=== PATIENT | male | born 1960 | race Caucasian/White ===

== ENCOUNTER 2019-02-06 06:05 | Day surgery (SDC) | payer BC ==
[2019-02-05 12:09] VITALS: BMI 35.7
[~2019-02-06 06:05] MED LIST: BUPIVACAINE HCL/PF (5 MG/ML) 30 ML VIAL IJ ONE; DEXAMETHASONE SOD PHOSPHATE 4 MG/1 ML VIAL IM ONE
[2019-02-06 06:58] VITALS: TEMP 97.9
[2019-02-06] MEDS ORDERED: PROPOFOL 20 ML ONE ×4 (07:09→08:14)
[2019-02-06] MEDS ORDERED: SUCCINYLCHOLINE CHLORIDE 200 MG/10 ML SYRINGE ONE (07:09)
[2019-02-06] MEDS ORDERED: MIDAZOLAM HCL 2 MG/2 ML SINGLE DOSE VIAL ONE (07:10)
[2019-02-06] MEDS ORDERED: ceFAZolin SODIUM 1 GM VIAL ONE (07:13)
[2019-02-06] MEDS ORDERED: SODIUM CHLORIDE 0.9% P/F 10 ML VIAL IJ ONE ×2 (07:13→08:21)
[2019-02-06] MEDS ORDERED: LIDOCAINE HCL/PF 2% SDV 5ML VIAL ONE (07:13)
[2019-02-06] MEDS ORDERED: BUPIVACAINE HCL/PF 0.5% (5MG/ML) 10 ML VIAL ONE (07:17)
[2019-02-06] MEDS ORDERED: LIDOCAINE HCL 1%, 10 MG/ML (20ML VIAL) ONE (07:17)
[2019-02-06] MEDS ORDERED: DEXAMETHASONE SOD PHOSPHATE 4 MG/1 ML VIAL ONE (07:22)
[2019-02-06] MEDS ORDERED: ceFAZolin SODIUM 1 GM VIAL IVPB ONE (07:43)
[2019-02-06] MEDS ORDERED: KETOROLAC TROMETHAMINE 30 MG/1 ML VIAL ONE (07:48)
[2019-02-06] MEDS ORDERED: LIDOCAINE HCL 1%, 10 MG/ML (20ML VIAL) INF ONE (08:02)
[2019-02-06] MEDS ORDERED: BUPIVACAINE HCL/PF (5 MG/ML) 30 ML VIAL IJ ONE (08:02)
[2019-02-06] MEDS ORDERED: BENZOIN TINCTURE SWABSTICK TP ONE (08:06)
[2019-02-06] MEDS ORDERED: BACITRACIN 50,000 UNITS VIAL TP ONE (08:15)
[2019-02-06] MEDS ORDERED: KETOROLAC TROMETHAMINE 15 MG/ML VIAL ONE (09:30)
[2019-02-06] MEDS ORDERED: ONDANSETRON 4 MG/2 ML VIAL IVPUSH PRN (10:22)
[2019-02-06] MEDS ORDERED: oxyCODONE HCL 5 MG TABLET PO PRN ×2 (10:22)
[2019-02-06] MEDS ORDERED: KETOROLAC TROMETHAMINE 15 MG/ML VIAL IVPUSH ONE (10:23)
[2019-02-06] MEDS ORDERED: LACTATED RINGERS SOLUTION 1,000 ML IV SCH (10:30)
[2019-02-06 12:33] VITALS: BP 139/76; PULSE 59
--- NOTE | 2019-02-07 09:13 | OP ---
DATE OF OPERATION: 02/06/2019 ATTENDING SURGEON: Katherine Daly DPM ABORIGINAL LIAISON OFFICER: Zach Burnette DPM, and Ruthy Sampson [id number] PREOPERATIVE DIAGNOSIS: Right foot hallux valgus, revision, and hammertoe of the 2nd and 3rd toes, right foot. POSTOPERATIVE DIAGNOSIS: Right foot hallux valgus, revision, and hammertoe of the 2nd and 3rd toes, right foot. PROCEDURES: Marshal bunionectomy with screw fixation right foot and arthroplasty of the 2nd toe right foot, and arthroplasty of the 3rd toe, right foot. ANESTHESIA: Local with MAC HEMOSTASIS: Right ankle tourniquet at 250 mmHg ESTIMATED BLOOD LOSS: Less than 2 mL PROCEDURE: The patient was brought to the operating room and placed on the operating room table in the supine position. After adequate IV sedation, a local infiltrative block was administered using 20 mL of 1:1 mixture of 1% lidocaine and 0.5% Marcaine plain to the surgical site right foot. The right foot was then scrubbed, prepped, and draped in the usual aseptic fashion. Upon exsanguination of the right foot with an Esmarch bandage and previous placement of the padding at the ankle, the pneumatic ankle tourniquet was inflated to 250 mmHg. Surgery began in the following manner: Attention was first directed to the dorsal and medial aspect of the 1st metatarsophalangeal joint of the right foot where a linear incision was made at the dorsal medial aspect of 1st metatarsophalangeal joint approximately 4 cm in length. Incision was then deepened through the subcutaneous tissue using sharp and blunt dissection. Care was taken to identify and retract all vital and neurovascular structures. Next, a linear capsulotomy was performed at the dorsal aspect of the 1st metatarsophalangeal joint. The periosteal and capsular structures were then carefully dissected free of its soft tissue attachments and reflected medially and laterally, thus exposing the head of the metatarsal to the operative site. It was noted that the head was hypertrophied on its medial and dorsal aspect. At this time, there was a large accessory bone noted on the medial aspect of the metatarsal head of the 1st which was attached to the capsule medially. Using number 15 blade, the accessory bone was removed from the medial capsule site, and capsulorrhaphy was performed. Next, using sagittal saw, the medial prominence was resected and pulled from the operating field and sent to pathology. Attention was then redirected to the medial aspect of the first metatarsal head where, utilizing a sagittal saw, a through and through V-type osteotomy was created in the metaphyseal region of the bone. The apex of this osteotomy was pointed distally with the arms pointing proximal plantarly and proximal dorsally. Upon completion of the osteotomy, the capsule fragment was then directed and shifted 2 mm laterally into a more corrected position and impacted upon the 1st metatarsal shaft. Next, utilizing 0.062 K-wire, the osteotomy site was temporarily fixated. At this time, using AO principles and techniques, the osteotomy site was fixated with 2 screws, 2-0 x 16 mm long x2 across the osteotomy site with excellent compression noted. Attention was then redirected to the remaining medial bone shelf which was resected using a sagittal saw and passed from the operative field. All the rough edges and prominences were then resected and smoothed using a power bur. The correction of deformity was assessed at this time and noted to be excellent with great range of motion. The surgical site was then irrigated with copious amounts of normal saline with bacitracin in it, and the capsule was reapproximated using 2-0 and 3-0 Vicryl and subcutaneous tissue was closed using 4-0 and 5-0 Vicryl sutures in a running subcuticular suture fashion. Benzoin and Steri-Strips were then placed across the incision site. Next, attention was brought to the dorsal aspect of the 2nd digits of the right foot, where 2 converging semielliptical incisions were made dorsal to the PIPJ. The incision was then deepened through the subcutaneous tissue with care being taken to identify and retract vital neurovascular structures. At this time, a transverse tenotomy and capsulotomy was performed to the proximal interphalangeal joint of the 2nd digit of the right foot and the head of the proximal phalanx noted to be resect previously and hypertrophied in some areas, and utilizing the oscillating sagittal saw, the head of the proximal phalanx was then resected and passed from the operating field which was the revision of the hammertoe surgery, and passed from the operating field and sent to pathology. The wound was irrigated with copious amount of normal saline with bacitracin in it. The extensor tendon was then reapproximated using 3-0 Vicryl suture, and the skin was closed using 4-0 nylon sutures in a single suture fashion. Attention was then directed to the dorsal aspect of the 3rd toe of the right foot where 2 semielliptical converging incisions were made dorsal to the PIPJ and the incision was deepened through the subcutaneous tissue with care being taken to identify and retract all vital neurovascular structures. At this time a transverse tenotomy performed to the proximal interphalangeal joint of the 3rd toe of the right foot. The head of the proximal phalanx was then freed from its capsular and ligamentous attachments and again the head noted to be previously resected and the neck of the proximal phalanx at the previous osteotomy site noted to be hypertrophied. Using a sagittal saw, the neck of the proximal phalanx was resected and passed from the operating field. At this time, the surgical site was flushed with copious amount of normal saline with bacitracin in it. Extensor tendon surgery reapproximated using 3-0 Vicryl suture, and skin was closed using 4-0 nylon suture in simple suture fashion technique. There was 5 mL of 1% lidocaine which was injected intraoperatively and postoperatively, 10 mL of 0.5% Marcaine was injected throughout the surgical sites. At this time, the surgical incision sites were dressed using Betadine soaked Adaptic, 4x4s, sterile gauze, Mirza, and Richie bandage. The pneumatic ankle tourniquet was then deflated and prompt hyperemic response was noted to all the digits of the right foot. The patient tolerated the procedure and anesthesia well and was transferred to the post anesthesia care unit. The vital signs stable and vascular status intact in the right lower extremity, capillary refilling time was less than 3 seconds to all digits of the right foot. ROLA Knott/[id number]
--- NOTE | 2019-02-07 17:06 | PATH ---
Surgical Pathology Report Patient Name: DEBORAH MOHR [facility]. Rec. #: [id number] /Age/Gender: 1960 (Age: 58) / M Account: [id number] Location: [facility] SURGICAL Taken: 02/06/2019 Received: 02/06/2019 Reported: 02/07/2019 Physicians: Katherine Daly DPM Specimen(s) Received A: ACCESSORY BONE FIRST METATARSAL RIGHT FOOT B: BONE 2ND AND 3RD DIGITS RIGHT FOOT Clinical History Bunion, hammertoe second and third digits right foot Final Diagnosis A. ACCESSORY BONE, FIRST METATARSAL, FOOT, RIGHT, EXCISION: BONE WITH DEGENERATIVE CHANGES. B. BONE, SECOND AND THIRD DIGITS, FOOT, RIGHT, EXCISION: BONE WITH DEGENERATIVE CHANGES. Electronically Signed Penelope Golden M.D. Gross Description A. Received in formalin labeled "accessory bone first metatarsal right foot," is a 1.4 x 1.0 x 0.5 cm jimenez-yellow portion of bone. The specimen is serially sectioned and entirely submitted in one cassette, following decalcification. B. Received in formalin labeled "bone second and third digits right foot," is a 2.1 x 1.7 x 0.4 cm aggregate of jimenez-yellow bone fragments. A airline security representative portion is submitted in one cassette, following decalcification. /02/06/201902/06/2019
== END 2019-02-06 12:33 | disposition home or self-care (01) ==
LOC: JASU-SURG 06:05
PROVIDERS: ATTEND Podiatrist Foot Surgery
PROC: 0QBQ0ZZ Excision of Right Toe Phalanx, Open Approach (ICD-10-PCS; 2019-02-06)
PROC: 0SRP0JZ Replacement of Right Toe Phalangeal Joint with Synthetic Substitute, Open Approach (ICD-10-PCS; principal; 2019-02-06 07:30)
PROC: 0QBQ0ZZ Excision of Right Toe Phalanx, Open Approach (ICD-10-PCS; 2019-02-06 07:30)
DX: M20.41 Other hammer toe(s) (acquired), right foot (principal); M20.11 Hallux valgus (acquired), right foot; M21.611 Bunion of right foot; I10 Essential (primary) hypertension
CPT/HCPCS: 73630-TC-RT-FY; 88304-TC; 88311-TC; 94760